=== PATIENT | female | born 2000 | race Caucasian/White ===

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

== ENCOUNTER 2019-04-22 14:59 | Outpatient (CLI) | payer OTHER ==
--- NOTE | 2019-04-22 15:44 | BD ---
Exam: DEXA Bone Density 04/22/19 INDICATIONS: 18-year-old female with fractures. Personal history states previous vertebral fracture. Personal hist ory also states fractures not result of significant trauma. Assess bone density. FINDINGS: Lumbar Spine: BMD (g/cm2) T-SCORE L1 0.803 -1.1 L2 0.910 -1.1 L3 0.913 -1.6 L4 0.937 -1.6 L1-L4 0.893 -1.4 Femoral Neck: 0.918 0.6 Total Femur: 0.980 0.3 Impression: 1. The lumbar spine density indicates osteopenia. 2. The femoral neck density is within normal range. POS: [facility]
== END 2019-04-22 15:00 | disposition home or self-care (01) ==
LOC: BICMAMMO 14:59
PROVIDERS: ATTEND Physician Assistant
DX: Z13.820 Encounter for screening for osteoporosis (principal); Z87.81 Personal history of (healed) traumatic fracture; M85.88 Other specified disorders of bone density and structure, other site
CPT/HCPCS: 77080